=== PATIENT | female | born 1940 | race Caucasian/White ===

== ENCOUNTER → 2019-11-04 09:12 | Outpatient (BNVA) | payer MEDICARE, OTHER, SELFPAY | PROVIDERS: Family Provider Internal Medicine; PCP Internal Medicine; Visit Provider Nurse Practitioner Family | DX: E03.9 Hypothyroidism, unspecified (principal) | CPT/HCPCS: 80053; 80061; 84443; 85025 ==

== ENCOUNTER 2019-11-11 08:56 | Day surgery (SDC) | payer MEDICARE, OTHER, SELFPAY ==
[2019-11-09 07:57] VITALS: BMI 29.2
[2019-11-11 09:18] VITALS: BP 154/97; PULSE 97; RESP 18; TEMP 36.9; O2SAT 100
[2019-11-11] MEDS: sodium chloride 0.9% 1,000 ML 30 ML IV (09:31)
--- NOTE | 2019-11-11 09:48 | ANES.PREANE2 ---
Pre-Anesthetic Assessment Pre-Anesthetic Assessment: Height/Weight: Height 1.57 m Weight 72.575 kg Temp Pulse Resp BP Pulse Ox 98.4 F 97 18 154/97 100 11/11/19 09:18 11/11/19 09:18 11/11/19 09:18 11/11/19 09:18 11/11/19 09:18 Preop Diagnosis: hematochezia Proposed Procedure: Operation Date: 11/11/19 10:00 Proposed Procedures p Colonoscopy 50869 K62.5(Not Applicable) - Rafi Diehl MD Familial anesthetic complications: None Was Beta Valarie taken within 24 hours: N/A Last intake: Intake NPO > 8 hrs (Plavix stopped day before yesterday) Last Liquid Date 11/10/19 Last Liquid Time 23:00 Social: Social History: No alcohol and No tobacco Exam: Pre-Anes Outpt Exam: alert, oriented x 3, clear to auscultation bilaterally and regular rate & rhythm Airway: Cervical ROM: WNL MP: 3 Dentition: False Pulmonary: Pulmonary: None reported CV/HEM: CV/HEM: CAD (3 stents in 2010) and HTN Metabolic: Metabolic: Thyroid Neuropsych: Neuropsych: TIA (most recent one a few years ago) Anesthetic Plan: ASA status: 2 Anesthesia: MAC Risk of > 500 ml blood loss (7ml/kg in children): No Meds/Allergies Current Medications: Current Medications Generic Name Dose Route Start Last Admin Trade Name Freq PRN Reason Stop Dose Admin Sodium Chloride 1,000 mls @ 30 ml s/hr 11/11/19 09:15 11/11/19 09:31 Sodium Chloride 0.9% IV 11/12/19 09:14 30 mls/hr .Q24H RAMESH Administration PFSH Anesthesia PFSH: Medical History (Updated 11/03/19 @ 16:26 by Rafi Diehl MD) Mild cognitive impairment Osteoarthritis of both hips Social History Smoking and tobacco status: never smoked Alcohol intake: never Data Anesthesia Cardiac Studies: No Data to Display
--- NOTE | 2019-11-11 10:06 | W.PM.OPSUD ---
Surgery/Procedure H&P Update DATE OF PROCEDURE: November 11, 2019 DATE H&P PERFORMED: 10/31/19 PREOP DIAGNOSIS: hematochezia PLANNED PROCEDURE: Operation Date: 11/11/19 10:00 Proposed Procedures p Colonoscopy 56208 K62.5(Not Applicable) - Rafi Diehl MD
[2019-11-11 10:19] VITALS: BP 156/95; PULSE 68; RESP 16; TEMP 36.2; O2SAT 96
[2019-11-11 10:34] VITALS: BP 149/94; PULSE 64; RESP 18; TEMP 36.4; O2SAT 99
--- NOTE | 2019-11-11 10:51 | ANE.PACU2 ---
Inpatient post-anesthesia follow up: Airway intact: Yes Vital signs: Temperature 97.5 F Pulse Rate 64 Respiratory Rate 18 Blood Pressure 149/94 Pulse Oximetry 99 Oxygen Delivery Me thod Room Air Oxygen Flow Rate 2 Fraction of Inspir ed Oxygen Hydration adequate: Yes Nausea and vomiting: No Mental status: Baseline
--- NOTE | 2019-11-17 12:37 | W.PM.OPSFHP ---
Same Day Surgery H&P Indication for Procedure/HPI DATE OF PROCEDURE: November 17, 2019 CHIEF COMPLAINT/INDICATIONFOR SURGICAL PROCEDURE: History of polyps and abdominal pain PREOP DIAGNOSIS: hematochezia PLANNED PROCEDRUE: Operation Date: 11/11/19 10:00 Proposed Procedures p Colonoscopy 27750 K62.5(Not Applicable) - Rafi Diehl MD Medications/Allergies* Home Medications Medication Instructions Recorded Confirmed Type aspirin 81 mg tablet,delayed 81 mg PO DAILY 08/04/19 11/10/19 History release Allergies/Adverse Reactions Allergy/AdvReac Type Severity Reaction Status Date / Time codeine Allergy Unknown Verified 11/03/19 09:43 Pertinent History/Comorbid Conditions* Medical History (Updated 11/03/19 @ 16:26 by Rafi Diehl MD) Mild cognitive impairment Osteoarthritis of both hips Social History Smoking and tobacco status: never smoked Alcohol intake: never Pertinent Exam Findings alert, oriented x 3, clear to auscultation bilaterally, regular rate & rhythm, operative site marked and procedure specific exam findings Recommendations Surgery/Procedure today Coding Level of Care Code Acute Diesel Powerplant Mechanic Helper for Kelsie Dimas
== END 2019-11-11 11:01 | disposition home or self-care (01) ==
PROVIDERS: PCP Internal Medicine; Visit Provider Internal Medicine
PROC: 0DJD8ZZ Inspection of Lower Intestinal Tract, Via Natural or Artificial Opening Endoscopic (ICD-10-PCS; CPT 45378; principal; 2019-11-11 10:00)
DX: K57.31 Diverticulosis of large intestine without perforation or abscess with bleeding (principal); Z86.010 Personal history of colon polyps; M16.0 Bilateral primary osteoarthritis of hip
CPT/HCPCS: 12345; 45378; G0121; J2704; J7030

== ENCOUNTER → 2021-10-23 11:55 | Outpatient (BNVA) | payer MEDICARE, OTHER, SELFPAY | PROVIDERS: PCP Internal Medicine; Visit Provider Internal Medicine | DX: R53.83 Other fatigue (principal); K62.5 Hemorrhage of anus and rectum; K64.4 Residual hemorrhoidal skin tags; K59.03 Drug induced constipation; E03.9 Hypothyroidism, unspecified | CPT/HCPCS: 80053; 83550; 84443; 85025 ==

== ENCOUNTER 2022-07-29 07:02 | Outpatient (CLI) | payer MEDICARE, OTHER, SELFPAY ==
--- NOTE | 2022-07-29 | ECG_ITS ---
[facility] Test Date: 2022-07-29 Pat Name: Mariel Espinoza Department: Room: Gender: Female Die Press Operator: : 1940 Requested By: Rafi Diehl Order Number: [id number] Ravi MD: Christen Jackson M.D. Interpretive Statements NAME OF STUDY: LEXISCAN SESTAMIBI STRESS TEST INDICATION: Atypical Chest Pain, PROCEDURE: At the baseline, the EKG revealed normal sinus rhythm with a poor R wave progression. Possible old anteroseptal NE. Diffuse nonspecific T wave changes. The baseline heart was 86 bpm with a blood pressue of 148/81 mm of Hg. Lexiscan was infused over a period of 20 seconds. A total of 0.4 milligrams of Lexiscan was infused. The stress phase was continued for a total of 5 minutes. Heart rate at the end of the stress phase was 92 bpm with a blood pressure 170/89 mm of Hg. The EKG at the peak infusion revealed some nonspecific ST changes. Sestamibi was injected 20 seconds after the Lexiscan infusion. Heart rate at the end of the recovery phase was 95 bpm with a blood pressure of 171/91 mm of Hg. CONCLUSION: 1. Nonspecific EKG changes with the LexiScan infusion 2. No LexiScan induced chest pain or cardiac arrhythmia 3. Normal blood pressure and heart rate response 4. Sestamibi/sestamibi perfusion scan pending; see separate report. Electronically Signed On 08-02-2022 19:48:50 CDT by Christen Jackson M.D. [email or web address].[facility].[employer]/store/OM/[id number]
[2022-07-29 07:56] VITALS: BMI 28.3
--- NOTE | 2022-07-29 07:58 | NMCV_ITS ---
NM stewart perf SPECT r/s* [id number] Mariel Espinoza Age: 81 Gender: F : 1940 Exam Date: 07/29/2022 08:51 Ordering Phys: Rafi Diehl MD Technologist: STEFFI Ramos Exam Location: [facility] Indications: SHORTNESS OF BREATH STRESS TEST Please see separate stress test report in [facility] for full findings IMAGE PROTOCOL Rest/Stress 1 Lexiscan Day Radiopharmaceutical Dose (mCi) Administration Site Administered by Rest: Tc-99m 10.5 IV STEFFI Long Sestamibi Stress:Tc-99m 32.4 IV STEFFI Long Sestamibi Rest: 29-Jul-2022 60 Discovery 630 Stress: 29-Jul-2022 30 Discovery 630 0.4mg Lexiscan. Images obtained in supine and prone position. SPECT RESULTS Technical Quality: Excellent Raw Data Analysis: Normal Image Corrections: No attenuation or motion correction applied Summed Stress Score: 0 Summed Rest Score: 0 Summed Difference Score: 0 PERFUSION FINDINGS Uniform myocardial tracer uptake. No significant perfusion abnormalities FUNCTIONAL RESULTS (calculated via Gated SPECT) Stress Image LV EF (%): 94 Stress EDV (mL):36 TID: 0.84 Stress ESV (mL):2 FUNCTIONAL FINDINGS: Segmental wall motion analysis revealing no gross wall motion abnormalities IMPRESSIONS 1. Unremarkable Myocardial perfusion imaging. 2. Normal LV ejection fraction 94%. 3. LV wall motion analysis revealing no gross wall motion abnormalities. 4. Normal LV volume Low probability for coronary ischemia, based on the above findings Dr Christen Jackson MD [facility] (Electronically Signed) Final Date: 29 July 2022 13:21 S
[2022-07-29] MEDS: regadenoson 0.4 Mg/5 ml Syringe IVP (09:33)
[2022-07-29 09:43] VITALS: BP 171/91; PULSE 91
== END 2022-07-29 07:03 | disposition home or self-care (01) ==
LOC: CDL 07:04
PROVIDERS: PCP Internal Medicine; Visit Provider Internal Medicine
DX: R06.09 Other forms of dyspnea (principal)
CPT/HCPCS: 36415; 78452; 93017; 96374; A9500; J2785

== ENCOUNTER 2023-04-14 12:21 | Observation (INO) | payer MEDICARE, OTHER, SELFPAY ==
[2023-04-14] VITALS (38 sets, daily range): BP systolic 95–240; BP diastolic 64–141; PULSE 64–97; RESP 12–27; TEMP 36.6–36.8; O2SAT 92–100; BMI 28.1; BMI 28.7
--- NOTE | 2023-04-14 12:29 | ECG_ITS ---
[facility] Test Date: 2023-04-14 Pat Name: Mariel Espinoza Department: Room: Gender: Female Dependency Counselor: : 1940 Requested By: Cady Colon Order Number: [id number] Ravi MD: Christen Jackson M.D. Measurements Intervals [place] Rate: 79 P: 77 [place]: 135 QRS: -6 QRSD: 86 T: 71 QT: 383 QTc: 439 Interpretive Statements SINUS RHYTHM LOW QRS VOLTAGE IN PRECORDIAL LEADS [QRS DEFLECTION < 1.0 mV IN CHEST LEADS] POSSIBLE ANTERIOR MYOCARDIAL INFARCTION , PROBABLY OLD [30 ms Q WAVE IN V3/V4, OR R < 0.2 mV IN V4] Compared to ECG 11/26/2018 20:27:40 Myocardial infarct finding now present T-wave abnormality no longer present Electronically Signed On 04-14-2023 21:42:19 KERSEY DEPARTMENT SUPERVISOR by Christen Jackson M.D. [email or web address] SolutionsNetwork Merchantssum[facility].[employer]/store/NU/[id number] f
--- NOTE | 2023-04-14 12:38 | XR_ITS ---
WS: [id number] PORTABLE CHEST HISTORY: chest pain COMPARISON: 11/26/2018 Lungs are clear and well expanded. No pleural effusion or pneumothorax. Cardiac size: Normal. Mediastinum/Aorta: Mild atherosclerosis aorta. No osseous abnormality seen. IMPRESSION: No pneumonia. Mild atherosclerosis aorta.
[2023-04-14 12:57] LABS: Basophils % 0.6 %; Eosinophils # 0.1 10^3/uL (0.0-0.8); Eosinophils % 1.4 %; Hematocrit 42.5 % (36-47); Lymphocytes % 38.2 %; Mean Corpuscular HGB Conc 33.9 g/dL (30-55); Mean Corpuscular Hemoglobin 32.7 pg (27-33); Mean Corpuscular Volume 96.6 fl (85-98); Mean Platelet Volume 10.6 fL (7.4-10.4); Monocytes # 0.4 10^3/uL (0.2-0.9); Monocytes % 7.1 %; Neutrophils # 2.68 10^3/uL (1.8-7.7); Neutrophils % 52.5 %; Nucleated Red Blood Cells % 0 %; Platelet Count 246 10^3/cmm (157-399); Red Cell Distribution Width 13.5 % (12.1-15.1)
[2023-04-14 13:14] LABS: Troponin(5th) Baseline 10 ng/L (0-10)
[2023-04-14 13:24] LABS: Alanine Aminotransferase 9 U/L (0-33); Alkaline Phosphatase 86 U/L (35-105); Anion Gap 16.1 (5-19); Aspartate Amino Transferase 18 U/L (0-32); Blood Urea Nitrogen 9 mg/dL (8-23); Calcium 10.2 mg/dL (8.5-10.5); Carbon Dioxide 24 mmol/L (22-29); Chloride 103 mmol/L (98-107); Globulin 2.6 g/dL (1.3-4.6); Glucose 94 mg/dL (65-115); Osmolality Calculated 286 mOsm/kg (285-295); Potassium 4.1 mmol/L (3.5-5.1); Sodium 139 mmol/L (136-145); Total Bilirubin 0.7 mg/dL (0.15-1.2); Total Protein 6.6 g/dL (6.6-8.7)
[2023-04-14 14:49] LABS: Troponin 5 2HR 11.07 ng/L (0-10); Troponin 5 2HR Delta 1.07 ABS# (0-10)
--- NOTE | 2023-04-14 16:37 | ECG_ITS ---
[facility] Test Date: 2023-04-14 Pat Name: Mariel Espinoza Department: Room: Gender: Female Siphon Operator: : 1940 Requested By: Cady Colon Order Number: [id number] Ravi MD: Christen Jackson M.D. Measurements Intervals [place] Rate: 80 P: 90 [place]: 146 QRS: -1 QRSD: 84 T: 41 QT: 356 QTc: 412 Interpretive Statements SINUS RHYTHM WITH MARKED SINUS ARRHYTHMIA LOW QRS VOLTAGE IN PRECORDIAL LEADS [QRS DEFLECTION < 1.0 mV IN CHEST LEADS] POSSIBLE ANTERIOR MYOCARDIAL INFARCTION , PROBABLY OLD [30 ms Q WAVE IN V3/V4, OR R < 0.2 mV IN V4] Compared to ECG 04/14/2023 12:29:20 No significant changes Electronically Signed On 04-14-2023 21:50:29 SCHOOL MANAGER by Christen Jackson M.D. [email or web address] [facility].[employer]/store/OM/[id number]
--- NOTE | 2023-04-14 16:37 | PC.NURSE ---
NURSE ASSUMED CARE AT 1630
[2023-04-14] MEDS: labetalol 5 mg/mL SDV 20mL 20 MG IVP ×2 (17:01→17:47)
[2023-04-14] MEDS: aspirin 81 mg Chew Tablet 324 MG PO (17:03)
[2023-04-14 17:12] LABS: Basophils % 0.4 %; Eosinophils # 0.1 10^3/uL (0.0-0.8); Eosinophils % 1.2 %; Hematocrit 43.3 % (36-47); Lymphocytes # 2.3 10^3/uL (0.8-4.8); Lymphocytes % 39.4 %; Mean Corpuscular HGB Conc 34.2 g/dL (30-55); Mean Corpuscular Hemoglobin 32.5 pg (27-33); Mean Platelet Volume 10.9 fL (7.4-10.4); Monocytes # 0.4 10^3/uL (0.2-0.9); Monocytes % 6.8 %; Neutrophils # 2.97 10^3/uL (1.8-7.7); Nucleated Red Blood Cells % 0 %; Platelet Count 256 10^3/cmm (157-399); Red Blood Count 4.56 10^6/uL (3.85-5.65); Red Cell Distribution Width 13.6 % (12.1-15.1); White Blood Count 5.71 10^3/uL (3.29-11.43)
[2023-04-14 17:25] LABS: Troponin(5th) Baseline 9 ng/L (0-10)
[2023-04-14 17:34] LABS: Alanine Aminotransferase 10 U/L (0-33); Albumin Level 4.1 g/dL (3.5-5.2); Alkaline Phosphatase 88 U/L (35-105); Anion Gap 18.7 (5-19); Aspartate Amino Transferase 18 U/L (0-32); Blood Urea Nitrogen 9 mg/dL (8-23); Calcium 9.9 mg/dL (8.5-10.5); Carbon Dioxide 22 mmol/L (22-29); Chloride 104 mmol/L (98-107); Globulin 3.1 g/dL (1.3-4.6); Glucose 93 mg/dL (65-115); NT Pro B Type Natriuretic Pept 159 pg/mL (0-450); Osmolality Calculated 290 mOsm/kg (285-295); Potassium 3.7 mmol/L (3.5-5.1); Sodium 141 mmol/L (136-145); Total Bilirubin 1.1 mg/dL (0.15-1.2); Total Protein 7.2 g/dL (6.6-8.7)
[2023-04-14] MEDS: nitroglycerin 0.4 mg sublingual Tablet SUBLINGUAL (17:47)
--- NOTE | 2023-04-14 18:13 | ED_ITS ---
HPI - Chest Pain 2 General: Chief Complaint: Chest Pain Stated Complaint: chest pains Time Seen by Provider: 04/14/23 16:28 History of Present Illness: 82-year-old female presents along with h er son for 1 week of intermittent chest pain. Patient reports she had a really bad episode that woke her up at 5 AM this morning. She says the pain moved from the center of her chest into her back. She reports that she thought she was having a heart attack. The pain then changed into her left shoulder left arm and left jaw. Upon arrival she is noted to be very hypertensive. Patient tells me that she gets confused about her medications and did not want to mess them up. She is afraid to ask for help. Therefore she has not been taking her medications for quite some time. She has a history of coronary artery disease and 3 stents. Her for stent was in 2000 and her last stent was in 2010. She reports she does not really exert herself and so has not noted any specific exertional component. No diaphoresis, vomiting, shortness of breath. She has felt sort of lightheaded with it. No syncope, orthopnea, PND, edema. Currently, she is having intermittent episodes of left chest pressure and starts to wince. She denies having any residual back pain jaw pain or neck pain at this time. She did have some stress testing done in spring 2022 that was reported as low risk for clinically significant CAD. Associated symptoms: Deny abdominal pain, dyspnea, fever(s), nausea, syncope or vomiting Review of Systems 2 General: Reports: 10 or more systems reviewed and unremarkable except in HPI and below Const: Denies: fever(s), chills or body aches Eyes: Denies: change in vision ENMT: Denies: throat pain Card: Denies: edema or syncope Resp: Denies: dyspnea or productive cough GI: Denies: abdominal pain, nausea, vomiting or diarrhea : Denies: flank pain, dysuria or urinary frequency Musc: Denies: extremity pain or extremity swelling Skin/Breast: Denies: rash or erythema Neuro: Denies: headache(s), numbness in extremities, weakness in extremities, lack of coordination or difficulty walking PFSH ED 2 PFSH: Medical History Hypothyroidism, unspecified Mild cognitive impairment Osteoarthritis of both hips Social History Smoking and tobacco/nicotine status: never used tobacco/nicotine Alcohol intake: never Substance/Drug Use: never Physical Exam 2 Const: COMMON NORMALS: no limitations, alert and well nourished EXAM LIMITATIONS: no altered mental status HENMT: COMMON NORMALS: normocephalic, atraumatic and external ears normal H EAD & SCALP: normocephalic and atraumatic EXTERNAL EAR: Yes external ears normal MOUTH: no muffled voice Eye: COMMON NORMALS: EOMs intact bilaterally, conjunctivae normal and no scleral icterus CONJUNCTIVA: Yes conjunctivae normal Neck/C-Spine: COMMON NORMALS: no JVD GENERAL: Yes normal visual inspection and Yes trachea midline Resp: COMMON NORMALS: normal respiratory effort, No use of accessory muscles and clear to auscultation bilaterally AUSCULTATION: clear to auscultation bilaterally Cardio: COMMON NORMALS: no JVD, regular rate and regular rhythm RATE: r egular rate RHYTHM: regular rhythm GI: COMMON NORMALS: Soft to palpation and non-tender PALPATION: Yes Soft to palpation and No Guarding due to palpation present (GI) Extremity: COMMON NORMALS: normal to inspection Neuro: COMMON NORMALS: moves all extremities, no focal motor deficits and no sensory deficits noted SENSORIUM/ORIENTATION: Yes alert SPEECH: speech normal Psych: COMMON NORMALS: mental status grossly normal, Normal thought process present, cooperative, normal affect and speech normal SPEECH: Yes normal speech THOUGHT PROCESS: Normal thought process present Skin: COMMON NORMALS: no rashes or lesions noted, turgor normal and no jaundice GENERAL SKIN EXAM: no rashes or lesions noted and turgor normal Course 2 Vital Signs: Vital signs: Vital Signs Temperature 97.9 F 04/14/23 12:32 Pulse Rate 67 04/14/23 19:03 Respiratory Rate 21 H 04/14/23 19:03 Blood Pressure 161/75 04/14/23 19:07 Pulse Oximetry 98 04/14/23 19:03 Oxygen Delivery Me thod Room Air 04/14/23 19:03 MDM - Chest Pain Medical Decision Making Differential diagnosis includes hypertensive emergency, acute coronary syndrome, CHF, pulmonary edema, aortic dissection, musculoskeletal pain, GI etiology, other. The EKG shows a sinus rhythm with very mild nonspecific ST changes. The initial troponin is 9 and the delta is +2. Patient was given labetalol 20 mg IV. This did not seem to help much. She was given a second dose of labetalol 20 mg IV. Finally, she was given nitroglycerin sublingual. Her blood pressure seem to improve at this point and is now down to 146/79. These medications are short acting and therefore I have ordered some losartan and a clonidine. I have added a CT angiogram of the chest to rule out aortic dissection. I think it is unlikely in her demographic but she has been without her blood pressure medicine for a long time and was having pain radiating into her back this morning. I think it would be worth ruling out. I intend for the patient to be admitted for acute chest pain with known coronary artery disease as well as accelerated hypertension. UPDATE: CTA Chest reviwed--official read pending. I don't see any dissection. Trops NOT suggesting NSTEMI. BP came down then went back up--I spoke with Dr Lizama who suggesting nitro drip and CSU admission. Lab Data 04/14/23 16:45 04/14/23 16:45 Radiology Impressions Chest CTA 04/14/23 18:14 IMPRESSION: 1. No aneurysmal dilatation or dissection of the thoracic aorta. 2. No pulmonary embolus. 3. No focal consolidation, pleural effusion or suspicious pulmonary nodules or masses. 4. Medial approach right carotid artery which loops just posterior to the esophagus. Laboratory Results WBC 5.71 10^3/uL (3.29-11.43) 04/14/23 16:45 RBC 4.56 10^6/uL (3.85-5.65) 04/14/23 16:45 Hgb 14.80 g/dL (11.27-16.99) 04/14/23 16:45 Hct 43.3 % (36-47) 04/14/23 16:45 MCV 95.0 fl (85-98) 04/14/23 16:45 MCH 32.5 pg (27-33) 04/14/23 16:45 MCHC 34.2 g/dL (30-55) 04/14/23 16:45 RDW 13.6 % (12.1-15.1) 04/14/23 16:45 Plt Count 256 10^3/cmm (157-399) 04/14/23 16:45 MPV 10.9 fL (7.4-10.4) H 04/14/23 16:45 Neut % (Auto) 52.0 % 04/14/23 16:45 Lymph % (Auto) 39.4 % 04/14/23 16:45 [place] % (Auto) 6.8 % 04/14/23 16:45 Eos % (Auto) 1.2 % 04/14/23 16:45 Baso % (Auto) 0.4 % 04/14/23 16:45 Neut # (Auto) 2.97 10^3/uL (1.8-7.7) 04/14/23 16:45 Lymph # (Auto) 2.3 10^3/uL (0.8-4.8) 04/14/23 16:45 [place] # (Auto) 0.4 10^3/uL (0.2-0.9) 04/14/23 16:45 Eos # (Auto) 0.1 10^3/uL (0.0-0.8) 04/14/23 16:45 Baso # (Auto) 0.0 10^3/uL (0.0-0.1) 04/14/23 16:45 Nucleated RBC % (auto) 0 % 04/14/23 16:45 Nucleated RBCs # 0.0 /100WBC 04/14/23 16:45 Sodium 141 mmol/L (136-145) 04/14/23 16:45 Potassium 3.7 mmol/L (3.5-5.1) 04/14/23 16:45 Chloride 104 mmol/L (98-107) 04/14/23 16:45 Carbon Dioxide 22 mmol/L (22-29) 04/14/23 16:45 Anion Gap 18.7 (5-19) 04/14/23 16:45 BUN 9 mg/dL (8-23) 04/14/23 16:45 Creatinine 0.7 mg/dL (0.5-0.9) 04/14/23 16:45 GFR Calculation Not Reportable 04/14/23 16:45 Glucose 93 mg/dL (65-115) 04/14/23 16:45 Calculated Osmolality 290 mOsm/kg (285-295) 04/14/23 16:45 Calcium 9.9 mg/dL (8.5-10.5) 04/14/23 16:45 Total Bilirubin 1.1 mg/dL (0.15-1.2) 04/14/23 16:45 AST 18 U/L (0-32) 04/14/23 16:45 ALT 10 U/L (0-33) 04/14/23 16:45 Alkaline Phosphatase 88 U/L (35-105) 04/14/23 16:45 Troponin T Baseline 9 ng/L (0-10) 04/14/23 16:45 Troponin T 120 Minute 11.07 ng/L (0-10) H 04/14/23 14:23 Delta Troponin T 1.07 ABS# (0-10) 04/14/23 14:23 NT-Pro-B Natriuret Pep 159 pg/mL (0-450) 04/14/23 16:45 Total Protein 7.2 g/dL (6.6-8.7) 04/14/23 16:45 Albumin 4.1 g/dL (3.5-5.2) 04/14/23 16:45 Globulin 3.1 g/dL (1.3-4.6) 04/14/23 16:45 XR interpretation done by ED provider, pending radiology final review ED provider radiology interpretation(s): EP interpretation of AP portable upright chest x-ray. There appears to be some enlargement or tortuosity of the aortic knob causing the trachea to deviate to the right. Overall low lung volumes, no pneumothorax, faint haziness in the left lower costophrenic angle without any obvious effusion. No signs of acute pulmonary edema. EKG Data EKG 1: Interpretation: Obtained at 1637. EP interpretation. Sinus rhythm, rate 80, normal axis, QRS 84 ms, some minimal ST morphology changes, no concerning ST segment elevations, some nonspecific T wave changes, poor R wave progression through the precordium may indicate possible prior anterior infarct. No ectopy. Discharge Plan Discharge Patient Disposition: Admitted As Inpatient Clinical Impression: Hypertensive emergency without congestive heart failure, Coronary artery disease, Acute chest pain, Medication management Condition: Stable Coding Level of Care Code ED Food And Beverage Analyst for Kelsie Dimas
--- NOTE | 2023-04-14 18:14 | CTR_ITS ---
PROCEDURE INFORMATION: Exam: CTA Chest Without And With Contrast Exam date and time: 04/14/2023 7:16 PM Age: 82 years old Clinical indication: Pain; Chest pressure; Additional info: Dissection protocol TECHNIQUE: Imaging protocol: Computed tomographic angiography of the chest without and with contrast. Exam focused on the arteries. 3D rendering (Not supervised by radiologist): MIP and/or 3D reconstructed images were created by the technologist. Radiation optimization: All CT scans at this facility use at least one of these dose optimization techniques: automated exposure control; mA and/or kV adjustment per patient size (includes targeted exams where dose is matched to clinical indication); or iterative reconstruction. Contrast material: OMNI 350; Contrast volume: 100 ml; Contrast route: INTRAVENOUS (IV); COMPARISON: CT angio chest PE protcl [id number] 11/26/2018 9:41 PM RADIATION DOSE METRICS: Total DLP (mGy-cm): 694 FINDINGS: Pulmonary arteries: No pulmonary embolus. Great vessels off aortic arch: Medial approach right carotid artery which loops just posterior to the esophagus. Aorta: No aneurysmal dilatation or dissection of the thoracic aorta. Lungs: Unremarkable. No consolidation. No masses. Pleural spaces: Unremarkable. No pneumothorax. No pleural effusion. Heart: Unremarkable. No cardiomegaly. No pericardial effusion. Coronary arteries: Coronary arterial atherosclerotic calcifications are present. Lymph nodes: Unremarkable. No enlarged lymph nodes. Gallbladder and bile ducts: The gallbladder is absent. Bones/joints: Unremarkable. No acute fracture. Soft tissues: Unremarkable. CT/CT angio chest [id number] IMPRESSION: 1. No aneurysmal dilatation or dissection of the thoracic aorta. 2. No pulmonary embolus. 3. No focal consolidation, pleural effusion or suspicious pulmonary nodules or masses. 4. Medial approach right carotid artery which loops just posterior to the esophagus.
--- NOTE | 2023-04-14 18:51 | ECG_ITS ---
[facility] Test Date: 2023-04-14 Pat Name: Mariel Espinoza Department: Room: Gender: Female Senior Loss Control Specialist: : 1940 Requested By: Farshad Barbosa Order Number: [id number] Ravi MD: Christen Jackson M.D. Measurements Intervals [place] Rate: 67 P: 67 [place]: 165 QRS: -6 QRSD: 82 T: 34 QT: 383 QTc: 406 Interpretive Statements SINUS RHYTHM LOW QRS VOLTAGE IN PRECORDIAL LEADS [QRS DEFLECTION < 1.0 mV IN CHEST LEADS] POSSIBLE ANTERIOR MYOCARDIAL INFARCTION , PROBABLY OLD [30 ms Q WAVE IN V3/V4, OR R < 0.2 mV IN V4] Compared to ECG 04/14/2023 16:37:31 Sinus arrhythmia no longer present Myocardial infarct finding still present Electronically Signed On 04-14-2023 21:52:19 AVIONICS INSTALLER by Christen Jackson M.D. [email or web address].Vello Systemsun[facility].[employer]ango/store/OM/[id number]
--- NOTE | 2023-04-14 19:01 | PC.NURSE ---
narrative writer given report by Sadia DE LA FUENTE @ [id number]. pt stable with no current complaints or concerns, 20ga left AC clean dry.
[2023-04-14] MEDS: losartan 50 mg Tablet PO (19:07)
[2023-04-14] MEDS: cloNIDine 0.1 mg Tablet PO (19:07)
[2023-04-14] MEDS: iohexol 350 mg/mL 500 mL Btl (per mL) IV (19:18)
[2023-04-14 20:36] LABS: Troponin 5 2HR 9.19 ng/L (0-10); Troponin 5 2HR Delta 0.19 ABS# (0-10)
--- NOTE | 2023-04-14 22:48 | P.HP_ITS ---
Providers/Chief Complaint 2 Admitting Physician: Pravin Lizama MD Primary Care Provider: Rafi Diehl MD Chief Complaint: chest pains History of Present Illness Mariel Espinoza is a 82 year old female with a past medical history of coronary artery disease, states she has had 5 stents in the past, hypertension however has not taken her medication in many months stating that her blood pressure was within normal range of 130s for a long time. She presents to the emergency room today with chest pain. She states that she woke up to go to the bathroom at around 5 AM and while walking she started to experience substernal chest discomfort which was radiating into her jaw and her left arm. States that she had similar pain in the past after which she ended up needing an angiogram and stents. Pain has been intermittent throughout the day. No gross correlation with exertion. She checked her blood pressure with the onset of the symptoms and noticed it to be over 200 therefore decided to present to the emergency room. Upon arrival here systolic blood pressure was 237 mmHg. She has received labetalol 20 mg IV pushes x 2, clonidine 0.1 mg p.o. once, nitroglycerin 2 inch patch and losartan 50 mg p.o. daily. At the time of my assessment patient's blood pressure is 121/79 mmHg. She was initially planned to be started on a nitroglycerin infusion for the elevated blood pressure, however with the above interventions blood pressure came back to normal range and she is being observed on MedSurg. She states that she has been experiencing intermittent chest discomfort for many weeks now. And has also noted that her blood pressure has been elevated the past few weeks. Consistently noted numbers more than 160 systolic. She states that her has been sick over the past week with URI type symptoms and she did not mention her symptoms to anyone as she did not want to worry her family. Last cardiac stress test from July 2022 was without any signs of reversible ischemia. Patient denies any fever chills nausea vomiting or diarrhea. CTA of the chest was negative for PE or arterial dissection. Review of Systems 2 General: Reports: 10 or more systems reviewed and unremarkable except in HPI and below Const: Denies: fever(s), chills or body aches Eyes: Denies: change in vision, blurry vision or photophobia ENMT: Reports: hoarseness; Denies: throat pain, enlarged tonsils, odynophagia or nasal congestion Card: Denies: chest pain, palpitations, irregular heart rhythm, edema, swelling of feet/ankles, lightheadedness, pre-syncope, dyspnea on exertion or orthopnea Resp: Denies: dyspnea, productive cough, non-productive cough, wheezing, stridor, pain on inspiration, change in phlegm color, hemoptysis or chest congestion GI: Denies: abdominal pain, nausea, vomiting, hematemesis, coffee ground emesis, dysphagia, heartburn, diarrhea, constipation, GI cramping, change in stool character, hematochezia or melena : Denies: flank pain, difficulty voiding, dysuria, urinary frequency, urinary urgency, urinary hesitancy or hematuria Musc: Denies: neck pain, back pain, extremity pain, joint swelling, joint warmth or deformity Neuro: Denies: headache(s), numbness in extremities, weakness in extremities, sensory changes, difficulty walking, frequent falls, dizziness, vertigo, behavioral changes, Slurred speech present or seizure-like activity Psych: Denies: anxiety, depression, suicidal ideation or homicidal ideation Endo: Denies: polyuria, polydipsia, tired all the time, cold intolerance or hot flashes [place]/Lymph: Denies: easy bruising or easy bleeding Medications/Allergies Home Medications Medication Instructions Recorded Confirmed Last Taken Type aspirin 81 mg tablet,delayed 81 mg PO DAILY 08/04/19 02/19/22 11/09/19 History release (Adult Aspirin Regimen) pantoprazole 40 mg tablet,delayed 40 mg PO DAILY #90 tabs 08/04/19 02/19/22 11/09/19 Rx release phenazopyridine 99.5 mg tablet 99.5 mg PO TID PRN pain 6 doses 02/06/20 02/19/22 Unknown Rx (Azo Urinary Pain Relief) #20 tabs hydrocortisone 2.5 % topical cream 1 applic SD DAILY PRN hemorrhoids 10/23/21 02/19/22 Unknown Rx with perineal applicator #30 grams (Anusol-HC) duloxetine 20 mg capsule,delayed 20 mg PO DAILY #90 caps 11/27/21 02/19/22 Unknown Rx release levothyroxine 100 mcg tablet 100 mcg PO DAILY #90 tabs 02/17/22 02/19/22 Unknown Rx hydrocodone 10 mg-acetaminophen 1 tab PO Q8H PRN pain 1 month #60 02/19/22 02/19/22 Unknown Rx 325 mg tablet tabs losartan 50 mg tablet 50 mg PO DAILY #90 tabs 02/19/22 02/19/22 Unknown Rx Allergies Allergy/AdvReac Type Severity Reaction Status Date / Time codeine Allergy Unknown Verified 04/14/23 12:32 PFSH Acute 2 PFSH: Medical History (Updated 04/15/23 @ 02:41 by Melanie Dumont MD) Coronary artery disease Hypothyroidism, unspecified Osteoarthritis of both hips Mild cognitive impairment Social History Smoking and tobacco/nicotine status: never used tobacco/nicotine Alcohol intake: never Substance/Drug Use: never Vitals/I&O/Wt Last Vital Signs Temp 97.9 F 04/14/23 12:32 Pulse 70 04/14/23 21:57 Resp 27 H 04/14/23 21:57 BP 132/85 04/14/23 21:57 Pulse Ox 99 04/14/23 21:57 O2 Del Method Room Air 04/14/23 21:12 Weight last 48 hrs Weight 71.214 kg Weight 69.853 kg Physical Exam 2 Narrative: General: No acute distress, AO x3 HEENT: PERRLA, pupils bilaterally equal and reactive, pallors not present Chest: Normal vesicular breath sounds, no added sounds, equal good air entry bilaterally CVS: S1-S2 regular, no murmurs, no tachycardia, no gallops, no rubs Abdomen: Soft, nontender, no organomegaly, bowel sounds present Neuro: No focal deficits, no facial deformity, AO x3, power 5/5 in all limbs Data 04/14/23 16:45 04/14/23 16:45 Other data: Date of Service: 04/14/23 Procedure(s): CT angio chest 36728 CT/CT angio chest 09085 IMPRESSION: 1. No aneurysmal dilatation or dissection of the thoracic aorta. 2. No pulmonary embolus. 3. No focal consolidation, pleural effusion or suspicious pulmonary nodules or masses. 4. Medial approach right carotid artery which loops just posterior to the esophagus. A&P Assessment and plan (1) Acute chest pain: (2) Hypertensive emergency without congestive heart failure: (3) Coronary artery disease: Plan 82-year-old lady with a past medical history of coronary artery disease, hypertension who presents to the hospital today with hypertensive urgency and chest pain. Patient's blood pressure initially upon arrival at 237/110. Multiple interventions in the emergency room as above. At the time of assessment blood pressure is improved to 120/76. Suspect that this is related to noncompliance with her hypertensive medications. Start home dose of losartan 50 mg p.o. daily. Monitor blood pressure closely, losartan could be titrated based on blood pressure response. Patient reports that currently her chest pain has resolved, however she has had intermittent chest discomfort over the past few weeks. Quality of her chest pain is concerning for possibly cardiac origin. EKG today without any acute ST-T wave changes. Troponin series 11--> 9--> 12 Plan on Lexiscan cardiac stress test in the morning to evaluate for ischemic cause of her chest pain given multiple risk factors. CTA chest negative for PE and dissection. DVT prophylaxis: SCDs as anticipate short course admission at this time Full code Attestations 2 Medical Necessity Statement*: Anticipate less than 2 midnight stay at this point in time. Coding Level of Care Code Acute Code for [facility] Fwd Diagnoses Acute chest pain R07.9 Hypertensive emergency without congestive heart failure I16.1 Coronary artery disease I25.10
[2023-04-14 23:16] LABS: Troponin 5 6HR 12.22 ng/L (0-10); Troponin 5 6HR Delta 3.22 ng/L (0-12)
[2023-04-15] VITALS (7 sets, daily range): BP systolic 121–151; BP diastolic 73–79; PULSE 62–86; RESP 17–96; TEMP 36.4–36.8; O2SAT 96–98
--- NOTE | 2023-04-15 | ECG_ITS ---
[facility] Test Date: 2023-04-15 Pat Name: Mariel Espinoza Department: Room: 250 Gender: Female Media Marketing Coordinator: : 1940 Requested By: Melanie Dumont Order Number: [id number] Ravi MD: Christen Jackson M.D. Interpretive Statements NAME OF STUDY: LEXISCAN SESTAMIBI STRESS TEST INDICATION: Angina PROCEDURE: At the baseline, the EKG revealed normal sinus rhythm with a poor R wave progression. Some nonspecific T wave changes. The baseline heart was 77 bpm with a blood pressue of 136/92 mm of Hg Lexiscan was infused over a period of 20 seconds. A total of 0.4 milligrams of Lexiscan was infused. The stress phase was continued for a total of 5 minutes. Heart rate at the end of the stress phase was 88 bpm with a blood pressure 165/69 mm of Hg. The EKG at the peak infusion revealed no significant changes. Sestamibi was injected 20 seconds after the Lexiscan infusion. Heart rate at the end of the recovery phase was 84 bpm with a blood pressure of 128/66 mm of Hg. CONCLUSION: 1. No significant EKG changes with the LexiScan infusion 2. No LexiScan induced chest pain or cardiac arrhythmia 3. Normal blood pressure and heart rate response 4. Sestamibi/sestamibi perfusion scan pending; see separate report. Electronically Signed On 04-17-2023 18:34:05 MARINE STEAM FITTER HELPER by Christen Jackson M.D. [email or web address]
--- NOTE | 2023-04-15 02:31 | NMCV_ITS ---
NM stewart perf SPECT r/s* [id number] Mariel Espinoza Age: 82 Gender: F : 1940 Exam Date: 04/15/2023 08:18 Ordering Phys: Melanie Dumont MD Technologist: STEFFI Ramos Exam Location: [facility] Indications: CHEST PAIN STRESS TEST Please see separate stress test report in [facility] for full findings IMAGE PROTOCOL Rest/Stress 1 Lexiscan Day Radiopharmaceutical Dose (mCi) Administration Site Administered by Rest: Tc-99m 10.7 IV STEFFI Long Sestamibi Stress:Tc-99m 32.4 IV STEFFI Long Sestamibi Rest: 04/15/2023 60 Discovery 630 Stress: 04/15/2023 30 Discovery 630 0.4mg Lexiscan. Supine position only as patient was unable to lay prone. SPECT RESULTS Technical Quality: Excellent Raw Data Analysis: Normal Image Corrections: No attenuation or motion correction applied Summed Stress Score: 0 Summed Rest Score: 0 Summed Difference Score: 0 PERFUSION FINDINGS Uniform myocardial tracer uptake with no significant perfusion abnormalities FUNCTIONAL RESULTS (calculated via Gated SPECT) Stress Image LV EF (%): 97 Stress EDV (mL):38 TID: 1 Stress ESV (mL):1 FUNCTIONAL FINDINGS: Segmental wall motion analysis revealing no gross wall motion abnormalities IMPRESSIONS 1. Uniform myocardial tracer uptake with no significant perfusion abnormalities 2. Normal LV ejection fraction of 97% 3. LV wall motion analysis revealing no gross wall motion abnormalities. 4. Normal LV volume Low probability for coronary ischemia, based on the above findings Dr Christen Jackson MD FAC (Electronically Signed) Final Date: 15 April 2023 13:33 S
--- NOTE | 2023-04-15 08:09 | PC.CHAP ---
Pastoral Care Encounter/Spiritual Assessment Type of Contact [] Declined cyber workforce developer and manager visit [] Patient/Family/Request visit [] Outpatient visit [] Follow-up visit [] Physician referral [] Code/Alert [] Routine visit [] Staff referral [] Actively dying [] Patient sleeping [] Family support [] [] Out of room [] Palliative care [] [] Receiving care in room [] Pre-surgical visit [] Trauma [] Long length of stay [] ICU visit [] Other: Relational/Emotional Strength [] Patient feels connected with others/family/visitors/staff [] Distress [] Loneliness/isolation [] Abandonment Spirituality of Patient [] Person of Renetta [] Attends Scientology of their Renetta [] Believes in Prayer [] Reads Bible or Baptism materials [] There are Spiritual issues to be addressed Cambering Machine Operator Interventions [] Prayer [] Active listening [] Non-anxious presence [] Spiritual/emotional support [] Crisis/trauma care [] Spiritual counseling [] Bereavement support [] Provided bereavement packet [] Provided Bible/devotional materials [] Provided toy/stuffed animal, coloring book to patient or family member [] Provided Communion [] Anointing/[place] [] Salvation [] Completed spiritual assessment [] Other: Impact on Illness or Injury [] Angry [] Fearful [] Anxious [] Often cries [] Exhaustion [] Unable to work [] Unable to attend christian [] Unable to walk/stand [] Unable to read [] Unable to drive [] Unable to eat/drink [] Unable to sleep [] Unable to be with family [] Patient intubated [] Other: Summary Time spent with patient
[2023-04-15] MEDS: regadenoson 0.4 Mg/5 ml Syringe IVP (09:25)
--- NOTE | 2023-04-15 10:27 | PC.CHAP ---
Pastoral Care Encounter/Spiritual Assessment Type of Contact [] Declined applications coordinator visit [] Patient/Family/Request visit [] Outpatient visit [] Follow-up visit [] Physician referral [] Code/Alert [x] Routine visit [] Staff referral [] Actively dying [] Patient sleeping [] Family support [] [] Out of room [] Palliative care [] [] Receiving care in room [] Pre-surgical visit [] Trauma [] Long length of stay [] ICU visit [] Other: Relational/Emotional Strength [x] Patient feels connected with others/family/visitors/staff [] Distress [] Loneliness/isolation [] Abandonment Spirituality of Patient [] Person of Renetta [] Attends Lutheran of their Renetta [] Believes in Prayer [] Reads Bible or Baptist materials [] There are Spiritual issues to be addressed Sales Consultant Insurance Interventions [x] Prayer [x] Active listening [] Non-anxious presence [] Spiritual/emotional support [] Crisis/trauma care [] Spiritual counseling [] Bereavement support [] Provided bereavement packet [] Provided Bible/devotional materials [] Provided toy/stuffed animal, coloring book to patient or family member [] Provided Communion [] Anointing/[place] [] Salvation [] Completed spiritual assessment [] Other: Impact on Illness or Injury [] Angry [] Fearful [] Anxious [] Often cries [] Exhaustion [] Unable to work [] Unable to attend adventism [] Unable to walk/stand [] Unable to read [] Unable to drive [] Unable to eat/drink [] Unable to sleep [] Unable to be with family [] Patient intubated [] Other: Summary Time spent with patient 15 min
[2023-04-15] MEDS: losartan 50 mg Tablet PO (10:45)
[2023-04-15] MEDS: amlodipine 10 mg Tablet PO (10:45)
[2023-04-15] MEDS: aspirin 81 mg EC Tablet PO (10:45)
[2023-04-15] MEDS: pantoprazole DR 40 mg Tablet PO (10:45)
[2023-04-15] MEDS: chlorthalidone 25 mg Tablet 12.5 MG PO (10:46)
--- NOTE | 2023-04-15 11:17 | PM.DCS ---
Discharge Providers Date of Admission: 04/14/23 20:58 Date of Discharge: April 15, 2023 Attending Provider at Admission: Pravin Lizama MD Attending Provider at Discharge: Marilee Colon MD Primary Care Provider: Rafi Diehl MD Diagnoses at Discharge Discharge Diagnosis (1) Acute chest pain: Status: Acute (2) Hypertensive emergency without congestive heart failure: Status: Acute (3) Coronary artery disease: Status: Inactive Reason for Visit Reason for Visit: chest pains Hospital Course Hospital Course 79-year-old female who was admitted for management evaluation of her chest pain which was radiating towards her back, troponin remained flat, EKG without ischemic or infarctive changes, CTA chest did not show PE or any signs of aortic dissection, patient went for cardiac stress test, she remained hemodynamically stable throughout hospitalization, her has been sick with upper respite tract infection for last few weeks she has not noticed any fever, patient is stating that she might have forgotten to take her antihypertensive regimen at home however she is not on any antihypertensive regimen considering her home medications, her systolic blood pressure was around 170s on arrival, it is 138 at the time of discharge, I will add lisinopril and amlodipine, echo unremarkable. Have her follow-up with PCP. TSH is normal. Physical Exam Narrative: Awake and alert Euvolemic Normotensive GCS 15 Currently on room air No active chest pain Complaining of back pain lower thoracic region Discharge Data Studies Completed and Pending Completed Studies During Hospitalization Category Date Time Status CT angio chest [id number] Stat Cat Scan 04/14/23 18:14 Completed Cardiac Stress Test MIBI [Sestamibi Stress Test Request Exams 04/15/23 02:30 Draft ] Routine XR chest 1V portable [id number] Urgent Exams 04/14/23 12:38 Completed Pending at discharge Category Date Time Status NM stewart perf SPECT r/s* [id number] Routine Nuc Med 04/15/23 02:31 Taken Radiology Impressions Chest CTA 04/14/23 18:14 IMPRESSION: 1. No aneurysmal dilatation or dissection of the thoracic aorta. 2. No pulmonary embolus. 3. No focal consolidation, pleural effusion or suspicious pulmonary nodules or masses. 4. Medial approach right carotid artery which loops just posterior to the esophagus. Laboratory Results WBC 5.71 10^3/uL (3.29-11.43) 04/14/23 16:45 RBC 4.56 10^6/uL (3.85-5.65) 04/14/23 16:45 Hgb 14.80 g/dL (11.27-16.99) 04/14/23 16:45 Hct 43.3 % (36-47) 04/14/23 16:45 MCV 95.0 fl (85-98) 04/14/23 16:45 MCH 32.5 pg (27-33) 04/14/23 16:45 MCHC 34.2 g/dL (30-55) 04/14/23 16:45 RDW 13.6 % (12.1-15.1) 04/14/23 16:45 Plt Count 256 10^3/cmm (157-399) 04/14/23 16:45 MPV 10.9 fL (7.4-10.4) H 04/14/23 16:45 Neut % (Auto) 52.0 % 04/14/23 16:45 Lymph % (Auto) 39.4 % 04/14/23 16:45 [place] % (Auto) 6.8 % 04/14/23 16:45 Eos % (Auto) 1.2 % 04/14/23 16:45 Baso % (Auto) 0.4 % 04/14/23 16:45 Neut # (Auto) 2.97 10^3/uL (1.8-7.7) 04/14/23 16:45 Lymph # (Auto) 2.3 10^3/uL (0.8-4.8) 04/14/23 16:45 [place] # (Auto) 0.4 10^3/uL (0.2-0.9) 04/14/23 16:45 Eos # (Auto) 0.1 10^3/uL (0.0-0.8) 04/14/23 16:45 Baso # (Auto) 0.0 10^3/uL (0.0-0.1) 04/14/23 16:45 Nucleated RBC % (auto) 0 % 04/14/23 16:45 Nucleated RBCs # 0.0 /100WBC 04/14/23 16:45 Sodium 141 mmol/L (136-145) 04/14/23 16:45 Potassium 3.7 mmol/L (3.5-5.1) 04/14/23 16:45 Chloride 104 mmol/L (98-107) 04/14/23 16:45 Carbon Dioxide 22 mmol/L (22-29) 04/14/23 16:45 Anion Gap 18.7 (5-19) 04/14/23 16:45 BUN 9 mg/dL (8-23) 04/14/23 16:45 Creatinine 0.7 mg/dL (0.5-0.9) 04/14/23 16:45 GFR Calculation Not Reportable 04/14/23 16:45 Glucose 93 mg/dL (65-115) 04/14/23 16:45 Calculated Osmolality 290 mOsm/kg (285-295) 04/14/23 16:45 Calcium 9.9 mg/dL (8.5-10.5) 04/14/23 16:45 Total Bilirubin 1.1 mg/dL (0.15-1.2) 04/14/23 16:45 AST 18 U/L (0-32) 04/14/23 16:45 ALT 10 U/L (0-33) 04/14/23 16:45 Alkaline Phosphatase 88 U/L (35-105) 04/14/23 16:45 Troponin T Baseline 9 ng/L (0-10) 04/14/23 16:45 Troponin T 120 Minute 9.19 ng/L (0-10) 04/14/23 19:56 Delta Troponin T 0.19 ABS# (0-10) 04/14/23 19:56 Troponin T Hi Sens 6Hr 12.22 ng/L (0-10) H 04/14/23 22:45 Troponin T Hi Sens 6Hr Delta 3.22 ng/L (0-12) 04/14/23 22:45 NT-Pro-B Natriuret Pep 159 pg/mL (0-450) 04/14/23 16:45 Total Protein 7.2 g/dL (6.6-8.7) 04/14/23 16:45 Albumin 4.1 g/dL (3.5-5.2) 04/14/23 16:45 Globulin 3.1 g/dL (1.3-4.6) 04/14/23 16:45 Vitals Last Vital Signs Temp 98.3 F 04/15/23 07:50 Pulse 62 04/15/23 09:40 Resp 18 04/15/23 07:50 BP 138/74 04/15/23 09:40 Pulse Ox 97 04/15/23 07:50 O2 Del Method Room Air 04/14/23 22:23 Discharge Plan Discharge Patient Disposition: Home Condition: Stable Prescriptions: New lisinopril 10 mg tablet 10 mg PO DAILY Qty: 60 4RF amlodipine 10 mg tablet 10 mg PO DAILY Qty: 60 3RF metoprolol tartrate 25 mg tablet 12.5 mg PO BID Qty: 60 2RF Continued hydrocortisone [Anusol-HC] 2.5 % cream with perineal applicator 1 applic ME DAILY PRN (Reason: hemorrhoids) Qty: 30 3RF hydrocodone-acetaminophen 10-325 mg tablet 1 tab PO Q8H PRN (Reason: pain) 30 Days Qty: 60 0RF levothyroxine 100 mcg tablet 100 mcg PO DAILY Qty: 90 3RF Discharge Orders: Discharge Order (Routine); Ordered 04/15/23 Ordered By: Marilee Colon Referrals: Rafi Diehl MD [Primary Care Provider] - 04/16/23 10:40 am Discharge Diet: Cardiac Discharge Activity: Increase activity as tolerated Patient Instructions: Metoprolol (By mouth), Lisinopril (By mouth), Amlodipine (By mouth), Hypertension (GEN), Opioid Safety Discharge Attestations Time Spent in Discharge Care*: greater than 30 min Quality Metrics Clinical Quality Measures [ No reported AMI, CVA or VTE this stay] Coding Level of Care Code Acute Code for [facility] Fwd Diagnoses Acute chest pain R07.9 Hypertensive emergency without congestive heart failure I16.1 Coronary artery disease I25.10
== END 2023-04-15 14:45 | disposition home or self-care (01) ==
LOC: ER 20:06 → MEDSURG 21:59
PROVIDERS: Physician Assistant; Admitting Provider Student in an Organized Health Care Education/Training Program; Emergency Provider Emergency Medicine; PCP Internal Medicine; Visit Provider Internal Medicine
DX: R07.89 Other chest pain (principal); I16.1 Hypertensive emergency; I25.10 Atherosclerotic heart disease of native coronary artery without angina pectoris; Z95.5 Presence of coronary angioplasty implant and graft; Z91.148 Patient's other noncompliance with medication regimen for other reason; Z79.82 Long term (current) use of aspirin; I10 Essential (primary) hypertension; M16.0 Bilateral primary osteoarthritis of hip; I70.0 Atherosclerosis of aorta
CPT/HCPCS: 36415; 71045; 71275; 78452; 80053; 83880; 84484; 85025; 93005; 93017; 96374; 96375; 99285; A9500; G0378; J2785; J3490; Q9967

== ENCOUNTER → 2023-06-17 09:55 | Outpatient (BNVA) | payer MEDICARE, OTHER, SELFPAY | PROVIDERS: PCP Internal Medicine; Referring Provider Internal Medicine; Visit Provider Internal Medicine Cardiovascular Disease | DX: I25.118 Atherosclerotic heart disease of native coronary artery with other forms of angina pectoris (principal); R55 Syncope and collapse; I10 Essential (primary) hypertension; E03.8 Other specified hypothyroidism; E78.5 Hyperlipidemia, unspecified; Z86.73 Personal history of transient ischemic attack (TIA), and cerebral infarction without residual deficits | CPT/HCPCS: 99204 ==

== ENCOUNTER 2023-06-24 11:02 | Outpatient (CLI) | payer MEDICARE, OTHER, SELFPAY ==
--- NOTE | 2023-06-24 11:45 | USCV_ITS ---
Mariel Espinoza Age: 82 Gender: F : 1940 Exam Date: 06/24/2023 11:29 Ordering Phys: Christen Jackson MD ([email or web address]) Technologist: CT Exam Location: [facility] [place] Indication: CP BP: 130 / 90 HR: 74 Rhythm: Sinus Technical Quality: Adequate MEASUREMENTS (Male / Female) Normal Values 2D ECHO LVOT Diameter 2.1 cm LV Ejection Fraction MOD 2C 63.6 % LV Ejection Fraction 2C AL 60.7 % LA Diameter 4.2 cm RA Systolic Volume 4C AL 29.3 ml RA Systolic Volume 4C MOD 28.7 ml Aorta at Sinotubular Diameter 2.9 cm IVC Diameter 1.4 cm M-MODE LA Ao Ratio MM 1.2 AV Cusp Separation MM 2.0 cm DOPPLER AV Peak Velocity 126.0 cm/s LVOT Peak Velocity 98.0 cm/s AV Area Cont Eq vti 3.2 cm squared AV Area Cont Eq pk 2.7 cm squared MV Area PHT 3.8 cm squared Mitral E to A Ratio 0.8 TR Peak Velocity 252.0 cm/s TR Peak Gradient 25.4 mmHg TV Peak E Velocity 64.0 cm/s Right Atrial Pressure 3.0 mmHg Pulmonary Artery Systolic Pressu 28.4 mmHg PV Peak Velocity 84.0 cm/s FINDINGS Left Ventricle Normal left ventricular size and systolic function, EF 61%.no regional wall motion abnormalities. Mild left ventricular hypertrophy. Grade I/IV diastolic dysfunction (abnormal relaxation filling pattern), normal to mildly elevated filling pressures. Right Ventricle Normal right ventricular size and systolic function. Right Atrium Moderately increased right atrial size. Left Atrium Moderately increased left atrial size. Mitral Valve Mild-moderate mitral valve regurgitation. Aortic Valve Thickened aortic valve. Trace to mild aortic valve regurgitation. Tricuspid Valve Trace tricuspid valve regurgitation. Pulmonic Valve Pulmonic valve not well visualized. Pericardium No pericardial effusion. Aorta Normal aortic annulus size. IVC Normal inferior vena cava. CONCLUSIONS Normal left ventricular size and systolic function, EF 61%.no regional wall motion abnormalities. Mild left ventricular hypertrophy. Grade I/IV diastolic dysfunction (abnormal relaxation filling pattern), normal to mildly elevated filling pressures. Moderately increased right atrial size. Moderately increased left atrial size. Mild-moderate mitral valve regurgitation. Thickened aortic valve. Trace to mild aortic valve regurgitation. Trace tricuspid valve regurgitation. There is no pericardial effusion. There are no intracardiac masses. Compared to the study from 10/01/2014, currently the atria are moderately dilated Dr Christen Jackson MD [facility] (Electronically Signed) Final Date: 02 July 2023 18:07 S
--- NOTE | 2023-06-24 12:45 | USCV_ITS ---
Mariel Espinoza Age: 82 Gender: F : 1940 Exam Date: 06/24/2023 12:05 Ordering Phys: Christen Jackson MD ([email or web address]) Technologist: CT Exam Location: [facility] [place] Indication: syncope Risk Factors: Previous Vascular Surgery: Right Brachial BP: / Left Brachial BP: / Right Left Velocity (cm/s) Spectral Plaque Velocity (cm/s) Spectral Plaque Syst/Diast Broadening Syst/Diast Broadening 70.60/ 15.70 Prox CCA 72.20 / 13.00 82.50/ 19.40 Mid CCA 88.20 / 21.40 66.00/ 15.80 Distal CCA 63.60 / 17.00 43.50/ 13.20 Prox ICA 37.50 / 12.80 55.30/ 18.40 Mid ICA 51.70 / 16.40 54.40/ 17.50 Distal ICA 50.50 / 15.40 76.20 ECA 45.20 0.80 ICA/CCA 0.80 Antegrade Vertebral Antegrade 24.80/ 0.00 cm/s 34.60/ 10.70 cm/s Bi Subclavian Bi 90.60 60.30 FINDINGS Intimal thickening and minimal plaques at the bifurcation and internal carotid arteries bilaterally Antegrade flow in the vertebral arteries bilaterally. Normal Doppler flow velocities in the external carotid, vertebral and subclavian arteries bilaterally. CONCLUSIONS 1. Intimal thickening and minimal plaques at the bifurcation and proximal internal carotid arteries bilaterally. 2. Normal Doppler flow velocities and ratios suggesting no significant arterial obstruction Dr Christen Jackson MD [facility] (Electronically Signed) Final Date: 02 July 2023 18:12 S
== END 2023-06-24 11:03 | disposition home or self-care (01) ==
LOC: RAD 11:02
PROVIDERS: PCP Internal Medicine; Visit Provider Internal Medicine Cardiovascular Disease
DX: G45.9 Transient cerebral ischemic attack, unspecified (principal); R06.09 Other forms of dyspnea; I77.9 Disorder of arteries and arterioles, unspecified; R55 Syncope and collapse
CPT/HCPCS: 93306; 93880

== ENCOUNTER → 2023-06-25 10:37 | Outpatient (BNVA) | payer MEDICARE, OTHER, SELFPAY | PROVIDERS: PCP Internal Medicine; Visit Provider Internal Medicine Cardiovascular Disease | DX: I49.1 Atrial premature depolarization (principal); I49.3 Ventricular premature depolarization; I48.91 Unspecified atrial fibrillation | CPT/HCPCS: 93246 ==

== ENCOUNTER 2023-07-23 09:46 | Outpatient (CLI) | payer MEDICARE, OTHER, SELFPAY ==
[2023-07-23 10:15] LABS: Basophils % 0.7 %; Eosinophils # 0.1 10^3/uL (0.0-0.8); Eosinophils % 1.4 %; Hematocrit 43.1 % (36-47); Lymphocytes # 1.9 10^3/uL (0.8-4.8); Lymphocytes % 33.4 %; Mean Corpuscular HGB Conc 33.6 g/dL (30-55); Mean Corpuscular Volume 100.9 fl (85-98); Mean Platelet Volume 10.5 fL (7.4-10.4); Monocytes # 0.4 10^3/uL (0.2-0.9); Monocytes % 7.4 %; Neutrophils # 3.29 10^3/uL (1.8-7.7); Neutrophils % 56.9 %; Nucleated Red Blood Cells % 0 %; Platelet Count 281 10^3/cmm (157-399); Red Blood Count 4.27 10^6/uL (3.85-5.65); Red Cell Distribution Width 13.2 % (12.1-15.1); White Blood Count 5.78 10^3/uL (3.29-11.43)
[2023-07-23 10:28] LABS: INR 1.04 (0.8-1.2)
[2023-07-23 10:45] LABS: Alanine Aminotransferase 7 U/L (0-33); Albumin Level 3.8 g/dL (3.5-5.2); Alkaline Phosphatase 85 U/L (35-105); Anion Gap 14.3 (5-19); Aspartate Amino Transferase 15 U/L (0-32); Blood Urea Nitrogen 14 mg/dL (8-23); Calcium 9.6 mg/dL (8.5-10.5); Carbon Dioxide 23 mmol/L (22-29); Chloride 105 mmol/L (98-107); Glucose 91 mg/dL (65-115); Osmolality Calculated 286 mOsm/kg (285-295); Potassium 4.3 mmol/L (3.5-5.1); Sodium 138 mmol/L (136-145); Thyroid Stimulating Hormone 19.39 uIU/mL (0.27-4.20); Total Bilirubin 0.8 mg/dL (0.15-1.2); Total Protein 6.8 g/dL (6.6-8.7)
== END 2023-07-23 09:47 | disposition home or self-care (01) ==
LOC: LAB 09:47
PROVIDERS: PCP Internal Medicine; Visit Provider Internal Medicine Cardiovascular Disease
DX: I25.118 Atherosclerotic heart disease of native coronary artery with other forms of angina pectoris (principal); I48.91 Unspecified atrial fibrillation
CPT/HCPCS: 36415; 80053; 84443; 85025; 85610

== ENCOUNTER 2023-12-03 12:00 | Outpatient (CLI) | payer MEDICARE, OTHER, SELFPAY ==
[2023-12-03 12:42] LABS: Free T4 Free Thyroxine 1.79 ng/dL (0.82-1.77); Thyroid Stimulating Hormone 0.17 uIU/mL (0.27-4.20)
== END 2023-12-03 12:01 | disposition home or self-care (01) ==
LOC: LAB 12:02
PROVIDERS: PCP Internal Medicine; Visit Provider Internal Medicine Cardiovascular Disease
DX: E03.8 Other specified hypothyroidism (principal)
CPT/HCPCS: 36415; 84439; 84443

== ENCOUNTER 2024-10-18 11:37 | Outpatient (CLI) | payer MEDICARE, OTHER, SELFPAY ==
--- NOTE | 2024-10-18 11:40 | MM_ITS ---
WS: [id number] BILATERAL 3D TOMOSYNTHESIS DIGITAL SCREENING MAMMOGRAPHY WITH CAD CLINICAL INFORMATION: SCREENING HISTORY: Screening mammogram. No current complaints. COMPARISON: 2006 TECHNIQUE: Bilateral CC and MLO views. FINDINGS: Scattered fibroglandular densities bilaterally. No suspicious focal mass, asymmetry, calcifications, or architectural distortion. No evidence of malignancy. Vascular calcification. Incidental benign calcifications. MM/MM scr tomosynthesis [id number] IMPRESSION: DENSITY: There are scattered areas of fibroglandular density. BI-RADS: 2 - Benign. FOLLOW UP: 1 Year Follow-up Recommend return to annual screening mammography.
== END 2024-10-18 11:38 | disposition home or self-care (01) ==
PROVIDERS: PCP Internal Medicine; Visit Provider Internal Medicine
DX: Z12.31 Encounter for screening mammogram for malignant neoplasm of breast (principal); R92.323 Mammographic fibroglandular density, bilateral breasts; R92.1 Mammographic calcification found on diagnostic imaging of breast
CPT/HCPCS: 77063; 77067

== ENCOUNTER → 2024-11-28 11:39 | Outpatient (BNVA) | payer MEDICARE, OTHER, SELFPAY | PROVIDERS: PCP Internal Medicine; Visit Provider Internal Medicine Cardiovascular Disease | DX: I25.118 Atherosclerotic heart disease of native coronary artery with other forms of angina pectoris (principal); R55 Syncope and collapse; I10 Essential (primary) hypertension; E03.9 Hypothyroidism, unspecified; E78.5 Hyperlipidemia, unspecified; Z79.02 Long term (current) use of antithrombotics/antiplatelets; Z86.73 Personal history of transient ischemic attack (TIA), and cerebral infarction without residual deficits; R07.9 Chest pain, unspecified; Z98.61 Coronary angioplasty status | CPT/HCPCS: 93005; 99214 ==

== ENCOUNTER 2024-12-06 09:24 | Outpatient (CLI) | payer MEDICARE, OTHER, SELFPAY ==
[2024-12-06 10:10] LABS: Cholesterol 145 mg/dL (0-200); HDL Cholesterol 48 mg/dL (60-100); Triglycerides 85 mg/dL (0-150)
== END 2024-12-06 09:25 | disposition home or self-care (01) ==
LOC: LAB 09:27
PROVIDERS: PCP Internal Medicine; Visit Provider Internal Medicine Cardiovascular Disease
DX: E03.8 Other specified hypothyroidism (principal)
CPT/HCPCS: 36415; 80061

== ENCOUNTER 2024-12-07 07:37 | Outpatient (CLI) | payer MEDICARE, OTHER, SELFPAY ==
--- NOTE | 2024-12-07 | ECG_ITS ---
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 Interpretive Statements Lung unchanged pre/post procedure; Intraprocedure shortess of breath; Symptoms resoled by discharge PROCEDURE: At the baseline, the EKG revealed sinus rhythm with a poor R wave progression. Some diffuse nonspecific T wave changes mostly in the inferior leads.. The baseline heart was 73 bpm with a blood pressue of 180/95 mm of Hg Lexiscan was infused over a period of 20 seconds. A total of 0.4 milligrams of Lexiscan was infused. The stress phase was continued for a total of 5 minutes. Heart rate at the end of the stress phase was 90 bpm with a blood pressure 174/89 mm of Hg. The EKG at the peak infusion revealed no significant changes. Sestamibi was injected 20 seconds after the Lexiscan infusion. Heart rate at the end of the recovery phase was 84 bpm with a blood pressure of 176/93 mm of Hg. CONCLUSION: 1. No significant EKG changes with the LexiScan infusion 2. No LexiScan induced chest pain or cardiac arrhythmia 3. Normal blood pressure and heart rate response 4. Sestamibi/sestamibi perfusion scan pending; see separate report. Electronically Signed On 12-10-2024 13:38:24 CDT by Christen Jackson M.D. [email or web address]
[2024-12-07 07:57] VITALS: BMI 27.4
--- NOTE | 2024-12-07 08:00 | NMCV_ITS ---
NM stewart perf SPECT r/s* [id number] Mariel Espinoza Age: 84 Gender: F : 1940 Exam Date: 12/07/2024 09:08 Ordering Phys: Christen Jackson MD ([email or web address]) Technologist: STEFFI Reynolds Exam Location: [facility] Indications: CP STRESS TEST Please see separate stress test report in [facility] for full findings IMAGE PROTOCOL Rest/Stress 1 Lexiscan Day Radiopharmaceutical Dose (mCi) Administration Site Administered by Rest: Tc-99m 10.8 IV STEFFI Long Sestamibi Stress:Tc-99m 32.5 IV STEFFI Reynolds Sestamilaz Rest: 07-Dec-2024 60 Discovery 630 Stress: 07-Dec-2024 30 Discovery 630 0.4mg Lexiscan. Images obtained in supine and prone position. SPECT RESULTS Technical Quality: Good Raw Data Analysis: Normal Image Corrections: No attenuation or motion correction applied Summed Stress Score: 0 Summed Rest Score: 0 Summed Difference Score: 0 PERFUSION FINDINGS Uniform myocardial tracer uptake with no significant Perfusion abnormalities FUNCTIONAL RESULTS (calculated via Gated SPECT) Stress Image LV EF (%): 92 Stress EDV (mL):37 TID: 0.64 Stress ESV (mL):3 FUNCTIONAL FINDINGS: Segmental wall motion analysis revealing no gross wall motion abnormalities IMPRESSIONS 1. Myocardial perfusion imaging revealing uniform tracer uptake with no significant perfusion abnormalities. 2. Normal LV ejection fraction of 92% 3. LV wall motion analysis revealing no gross wall motion abnormalities. 4. Normal LV volume Low probability for coronary ischemia, based on the above findings Dr Christen Jackson MD FACC (Electronically Signed) Final Date: 07 December 2024 13:36 S
[2024-12-07 10:12] VITALS: BP 168/94; PULSE 89
== END 2024-12-07 07:38 | disposition home or self-care (01) ==
LOC: CDL 07:39
PROVIDERS: PCP Internal Medicine; Visit Provider Internal Medicine Cardiovascular Disease
DX: R07.9 Chest pain, unspecified (principal); R94.39 Abnormal result of other cardiovascular function study; R94.31 Abnormal electrocardiogram [ECG] [EKG]
CPT/HCPCS: 36415; 78452; 93017; 96374; A9500; J2785

== ENCOUNTER 2024-12-09 13:08 | Outpatient (CLI) | payer MEDICARE, OTHER, SELFPAY ==
[2024-12-09 13:22] LABS: Hematocrit 40.3 % (36-47); Hemoglobin 13.70 g/dL (11.27-16.99); Mean Corpuscular HGB Conc 34.0 g/dL (30-55); Mean Corpuscular Hemoglobin 32.7 pg (27-33); Mean Corpuscular Volume 96.2 fl (85-98); Nucleated Red Blood Cells % 0 %; Platelet Count 282 10^3/cmm (157-399); Red Blood Count 4.19 10^6/uL (3.85-5.65); White Blood Count 6.56 10^3/uL (3.29-11.43)
[2024-12-09 13:33] LABS: INR 1.00 (0.8-1.2); Prothrombin Time 13.90 SECONDS (12.1-14.9)
[2024-12-09 13:41] LABS: Anion Gap 15.1 (5-19); Blood Urea Nitrogen 10 mg/dL (8-23); Calcium 9.4 mg/dL (8.5-10.5); Carbon Dioxide 23 mmol/L (22-29); Chloride 107 mmol/L (98-107); Glucose 99 mg/dL (65-115); Osmolality Calculated 291 mOsm/kg (285-295); Potassium 4.1 mmol/L (3.5-5.1); Sodium 141 mmol/L (136-145)
== END 2024-12-09 13:09 | disposition home or self-care (01) ==
LOC: LAB 13:10
PROVIDERS: PCP Internal Medicine; Visit Provider Internal Medicine Cardiovascular Disease
DX: I63.10 Cerebral infarction due to embolism of unspecified precerebral artery (principal); I10 Essential (primary) hypertension; I25.118 Atherosclerotic heart disease of native coronary artery with other forms of angina pectoris
CPT/HCPCS: 36415; 80048; 85025; 85610

== ENCOUNTER 2025-04-05 10:11 | Outpatient (RCR) | payer MEDICARE, OTHER, SELFPAY | END 2025-04-05 23:59 | disposition home or self-care (01) | LOC: SPT 10:11 | PROVIDERS: Visit Provider Nurse Practitioner Adult Health | DX: R26.89 Other abnormalities of gait and mobility (principal); R42 Dizziness and giddiness | CPT/HCPCS: 97161 ==